=== PATIENT | male | born 1980 ===

== ENCOUNTER 2018-09-01 12:16 | Outpatient (CLI) | payer BC ==
--- NOTE | 2018-09-01 13:20 | RAD ---
PORTABLE AP CHEST RADIOGRAPH: Date: 09-01-18 History: Positive TB blood test. FINDINGS: Cardiac silhouette and pulmonary vasculature are within normal limits. The lungs are clear. Osseous s tructures are intact. IMPRESSION: 1. No acute cardiopulmonary process. 2. No radiographic findings to suggest active tuberculosis. POS: [facility]
== END 2018-09-01 12:17 | disposition home or self-care (01) ==
LOC: RAD 12:16
PROVIDERS: ATTEND Family Medicine
DX: R76.11 Nonspecific reaction to tuberculin skin test without active tuberculosis (principal)
CPT/HCPCS: 71045